=== PATIENT | female | born 1965 | race Two or more races ===

== ENCOUNTER → 2017-05-29 | Outpatient (CLI) | payer OTHER ==
--- NOTE | 2017-05-29 10:43 | REPMRS ---
Patient History The patient states she has not had a clinical breast exam in over a year. Family history of prostate cancer in father at age 50 or over. Digital Woman Screen Mammo: May 29, 2017 - Exam #: [id number] Bilateral CC and MLO view(s) were taken. Technologist: Lela Guzman, Technologist No prior studies available for comparison. FINDINGS: There are scattered fibroglandular densities. There is no evidence of dominant mass, architectural distortion, or clustered microcalcification typical of malignancy. ASSESSMENT: BI-RADS/ACR category 1 mammogram. Negative. Recommendation Routine screening mammogram of both breasts in 1 year (for women over age 40). This mammogram was interpreted with the aid of an FDA-approved computer-aided dectection system. Electronically Signed By: Shahbaz Pantoja MD 05/29/17 0373
== END ==
LOC: M WHC 09:24
PROVIDERS: ATTEND Nurse Practitioner Family
DX: Z12.31 Encounter for screening mammogram for malignant neoplasm of breast (principal)

== ENCOUNTER → 2021-04-12 | Outpatient (CLI) | payer OTHER ==
--- NOTE | 2021-04-12 10:54 | REPMRS ---
Patient History The patient states she has not had a clinical breast exam in over a year. Family history of prostate cancer at age 50 or over in father. No breast complaints today Patient signed the MRS sheet 1st covid vaccine 09/19/20-right arm-Pfizer 2nd covid vaccine 10/09/20-right arm Priors on PACS Patient Identification Verified Digital Woman Screen Mammo: April 12, 2021 - Exam #: [id number] Bilateral CC and MLO view(s) were taken. Technologist: Annmarie Rajput, Technologist Prior study comparison: May 29, 2017, digital woman screen mammo performed at [facility]. FINDINGS: The breast tissue is almost entirely fat. Screening. Digital screening (2D) mammography was performed bilaterally in the CC and MLO projections. Additionally, breast tomosynthesis (3D mammography) was performed bilaterally in the CC and MLO projections. Todays exam was compared to the prior exam/exams. By history, the patient has no complaints of a palpable breast abnormality or other significant breast complaints. The Volpara volumetric breast density category is A, the breasts are almost entirely fatty. The breasts are unchanged in size and shape. There are no carey-soft tissue densities or spiculated masses. There is no internal architectural distortion. There are no suspicious carey-calcific clusters. Skin thickening or nipple retraction is not present. IMPRESSION: BI-RADS Category 2- Benign Findings. There is no evidence of malignant alteration of the breasts. Followup examination recommended in one year. This mammogram was read with the assistance [facility],an FDA approved computer aided detection system for mammography. The lifetime Tyrer-Cuzick score is 10.5% Negative x-ray reports should not delay surgical consultation if a dominant or clinically suspicious mass is present. Not all breast cancers can be identified by mammography. Therefore, we recommend that you continue to perform regular breast self-examination and physical examination and then promptly contact your physician of any concerns or changes. Adenosis and dense breasts may obscure an underlying neoplasm. No significant changes when compared with prior studies. Assessment: BI-RADS/ACR category 2 mammogram. Benign Findings. Recommendation Routine screening mammogram of both breasts in 1 year. Electronically Signed By: Sebastian Bennett MD 04/12/21 [id number]
== END ==
LOC: M WHC 09:20
PROVIDERS: ATTEND Family Medicine
DX: Z12.31 Encounter for screening mammogram for malignant neoplasm of breast (principal)

== ENCOUNTER → 2022-05-01 | Outpatient (CLI) | payer OTHER ==
[~2022-05-01] MED LIST: AMLO1TAB24 PO; LIDOCAINE 1% MDV 20ML VIAL As Ordered ONE; LOSA50TA5 PO
[2022-05-01 13:24] VITALS: BP 153/86
[2022-05-01 14:02] LABS: BASO # 0.1 10^3/uL (0.0-0.2); BASO % 2.5 % (0.0-1.0); EOS # 0.2 10^3/uL (0.0-0.5); EOS % 7.6 % (0.0-3.0); HEMATOCRIT 43.2 % (36.0-47.0); HEMOGLOBIN 14.3 g/dl (12.0-15.5); LYMPH # 0.9 10^3/uL (1.5-5.0); LYMPH % 46.5 % (24.0-44.0); MEAN CORPUSCULAR HEMOGLOBIN 30.6 pg (27.0-33.0); MEAN CORPUSCULAR HGB CONC 33.1 g/dl (32.0-36.5); MEAN CORPUSCULAR VOLUME 92.5 fl (80.0-96.0); MONO # 0.6 10^3/uL (0.0-0.8); MONO % 29.3 % (2.0-8.0); NEUTROPHILS % 13.6 % (36.0-66.0); PLATELET COUNT, AUTOMATED 239 10^3/uL (150-450); RED BLOOD COUNT 4.67 10^6/uL (4.00-5.40)
[2022-05-01 15:25] LABS: NEUTROPHILS # 0.3 10^3/uL (1.5-8.5)
== END ==
LOC: M IRPRO 11:54
PROVIDERS: ATTEND Specialist
DX: D70.9 Neutropenia, unspecified (principal)

== ENCOUNTER → 2022-05-15 | Outpatient (CLI) | payer OTHER ==
[~2022-05-15] MED LIST changes: -LIDOCAINE 1% MDV 20ML VIAL As Ordered ONE
[2022-05-15 13:17] LABS: BASO # 0.1 10^3/uL (0.0-0.2); BASO % 2.7 % (0.0-1.0); EOS # 0.2 10^3/uL (0.0-0.5); EOS % 7.6 % (0.0-3.0); HEMATOCRIT 44.5 % (36.0-47.0); HEMOGLOBIN 14.1 g/dl (12.0-15.5); LYMPH # 1.2 10^3/uL (1.5-5.0); LYMPH % 51.6 % (24.0-44.0); MEAN CORPUSCULAR HEMOGLOBIN 29.9 pg (27.0-33.0); MEAN CORPUSCULAR HGB CONC 31.7 g/dl (32.0-36.5); MEAN CORPUSCULAR VOLUME 94.5 fl (80.0-96.0); MONO # 0.6 10^3/uL (0.0-0.8); MONO % 26.7 % (2.0-8.0); NEUTROPHILS % 11.4 % (36.0-66.0); PLATELET COUNT, AUTOMATED 269 10^3/uL (150-450); RED BLOOD COUNT 4.71 10^6/uL (4.00-5.40); WHITE BLOOD COUNT 2.3 10^3/uL (4.0-10.0)
[2022-05-15 13:20] LABS: NEUTROPHILS # 0.3 10^3/uL (1.5-8.5)
[2022-05-15 13:27] LABS: INR 0.93; PROTHROMBIN TIME 12.7 SECONDS (12.5-14.5)
[2022-05-15 13:51] LABS: BLOOD UREA NITROGEN 11 MG/DL (7-18); CALCIUM LEVEL 9.3 MG/DL (8.5-10.1); CARBON DIOXIDE LEVEL 31 MEQ/L (21-32); CHLORIDE LEVEL 105 MEQ/L (98-107); CREATININE FOR GFR 0.72 MG/DL (0.55-1.30); GLOMERULAR FILTRATION RATE > 60.0 (>51); GLUCOSE, FASTING 95 MG/DL (70-100); POTASSIUM SERUM 4.5 MEQ/L (3.5-5.1); SODIUM LEVEL 138 MEQ/L (136-145)
== END ==
LOC: M LAB 11:36
PROVIDERS: ATTEND Orthopaedic Surgery
DX: M54.12 Radiculopathy, cervical region (principal); M48.02 Spinal stenosis, cervical region

== ENCOUNTER → 2023-06-14 | Outpatient (REF) | payer OTHER | LOC: M LAB REF 19:25 | PROVIDERS: ATTEND Physician Assistant | DX: L01.00 Impetigo, unspecified (principal) ==

== ENCOUNTER → 2023-08-18 | Outpatient (CLI) | payer OTHER | LOC: M PLAIMG 08:52 | PROVIDERS: ATTEND Family Medicine | DX: R05.3 Chronic cough (principal) ==

== ENCOUNTER → 2023-09-14 | Outpatient (CLI) | payer OTHER | LOC: M CARPUL 11:04 | PROVIDERS: ATTEND Family Medicine | DX: R05.3 Chronic cough (principal) ==

== ENCOUNTER → 2023-11-16 | Outpatient (CLI) | payer OTHER ==
[~2023-11-16] MED LIST changes: +METHACHOLINE KIT (6 VIAL.NEB PREMIX) INH ONE
== END ==
LOC: M CARPUL 10-14 09:18
PROVIDERS: ATTEND Family Medicine
DX: R05.3 Chronic cough (principal)
CPT/HCPCS: 94070; J7674

== ENCOUNTER → 2024-11-08 | Outpatient (CLI) | payer OTHER ==
[~2024-11-08] MED LIST changes: -METHACHOLINE KIT (6 VIAL.NEB PREMIX) INH ONE
== END ==
LOC: M WHC 06:58
PROVIDERS: ATTEND Internal Medicine
DX: Z12.31 Encounter for screening mammogram for malignant neoplasm of breast (principal)

== ENCOUNTER → 2025-01-13 | Outpatient (CLI) | payer OTHER | LOC: M CARPUL 08:22 | PROVIDERS: ATTEND Internal Medicine | DX: R01.1 Cardiac murmur, unspecified (principal) ==

== ENCOUNTER → 2025-07-17 | Outpatient (CLI) | payer OTHER | LOC: M RAD 13:49 | PROVIDERS: ATTEND Neurological Surgery | DX: Z98.1 Arthrodesis status (principal) ==